=== PATIENT | female | born 1940 | race Caucasian/White ===

== ENCOUNTER → 2021-05-02 | Outpatient (CLI) | payer SELFPAY | END | disposition home or self-care (01) | LOC: LAB SHORT 11:25 | DX: Z11.59 Encounter for screening for other viral diseases (principal) | CPT/HCPCS: 86803 ==

== ENCOUNTER 2023-01-14 11:58 | Observation (INO) | payer MEDICARE ==
[~2023-01-14] VITALS: Ht 172.7 cm; Wt 114.0 kg
[2023-01-14 13:23] LABS: BASOPHILS ABSOLUTE AUTO 0.07 K/mm3 (0.00-0.23); BASOPHILS PERCENT AUTO 1 % (0-2); EOSINOPHILS ABSOLUTE AUTO 0.17 K/mm3 (0.00-0.68); EOSINOPHILS PERCENT AUTO 2 % (0-6); Hematocrit 38.8 % (33.0-51.0); Hemoglobin 12.1 g/dL (11.5-16.0); IMMATURE GRAN ABSOLUTE AUTO 0.06 K/mm3 (0.00-0.10); IMMATURE GRAN PERCENT AUTO 1 % (0-1); LYMPHOCYTES ABSOLUTE AUTO 2.41 K/mm3 (0.84-5.20); LYMPHOCYTES PERCENT AUTO 26 % (21-46); MONOCYTES ABSOLUTE AUTO 0.69 K/mm3 (0.16-1.47); MONOCYTES PERCENT AUTO 8 % (4-13); Mean Corpuscular HGB 28.8 pg (26.0-34.0); Mean Corpuscular HGB Conc 31.2 g/dL (31.5-36.5); Mean Corpuscular Volume 92 fL (80-100); NEUTROPHILS ABSOLUTE AUTO 5.78 K/mm3 (1.96-9.15); NEUTROPHILS PERCENT AUTO 63 % (41-73); Platelet Count 148 K/mm3 (150-400); RDW Coefficient Variation 12.9 % (11.7-14.2); RDW Standard Deviation 43.7 fL (35.1-46.3); White Blood Cell Count 9.18 K/mm3 (4.00-11.30)
[2023-01-14 14:02] LABS: International Normalized Ratio 2.35; Prothrombin Time Results 23.5 Sec (9.7-11.5)
[2023-01-14 14:06] LABS: Albumin, Blood 3.8 g/dL (3.4-5.0); Bilirubin, Total 0.6 mg/dL (0.1-1.0); Bun/Creatinine Ratio 28.1 (12.0-20.0); Calcium, Blood 8.9 mg/dL (8.5-10.1); Creatinine, Blood 1.35 mg/dL (0.40-1.00); Free Thyroxine 1.07 ng/dL (0.70-1.60); Globulin, Blood 3.8 g/dL (2.2-4.0); Potassium, Blood 4.4 mmol/L (3.5-5.5); Thyroid Stimulating Hormone 0.122 uIU/mL (0.360-4.800); Total Protein, Blood 7.6 g/dL (6.4-8.2)
[2023-01-14] MEDS ORDERED: OMEP20ER PO (14:25)
[2023-01-14] MEDS ORDERED: JANTOVEN4 M2 PO (14:25)
[2023-01-14] MEDS ORDERED: LISINOPRIL-HCT1 EACH PO (14:25)
[2023-01-14] MEDS ORDERED: FUROSEMIDE20 MG PO (14:25)
[2023-01-14] MEDS ORDERED: CALCITRIOL0.25 MC4 PO (14:26)
[2023-01-14] MEDS ORDERED: Bisoprolol Fumar5 MG PO (14:26)
[2023-01-14] MEDS ORDERED: METHIMAZOLE5 M1 PO (14:27)
[2023-01-14] MEDS ORDERED: HUMULIN N100 UNIT/3 SC (19:34)
[2023-01-14] MEDS ORDERED: Metronidazole T45 GM TOP (19:35)
[2023-01-14] MEDS ORDERED: Ventolin/Prove6.7 GM INH (19:36)
[2023-01-14] MEDS ORDERED: AMLODIPINE BESY10 MG PO (19:36)
[2023-01-14] MEDS ORDERED: METO100ER PO (19:37)
[2023-01-14] MEDS ORDERED: PRAVASTATIN SOD40 MG PO (19:37)
[2023-01-14] MEDS ORDERED: FLUTICASONE-SAL12 G1 INH (19:38)
[2023-01-14] MEDS ORDERED: MONT10T PO (19:39)
[2023-01-14 19:43] VITALS: BP 209/75
[2023-01-14] MEDS ORDERED: HUMALOG KW100 UNIT/1 SC ×2 (19:48)
[2023-01-14] MEDS ORDERED: WARF2 PO (20:03)
[2023-01-14 20:08] VITALS: BP 198/68
[2023-01-14 23:13] VITALS: BP 169/54
--- NOTE | 2023-01-15 00:15 | NUR ---
1938 TO FLOOR FROM ER, MAKES NEEDS KNOWN, CALL LIGHT WITH IN REACH, NO DISTRESS, CONTINENT, CALL LIGHT WITH IN REACH
[2023-01-15 05:33] LABS: BASOPHILS ABSOLUTE AUTO 0.04 K/mm3 (0.00-0.23); BASOPHILS PERCENT AUTO 1 % (0-2); EOSINOPHILS ABSOLUTE AUTO 0.11 K/mm3 (0.00-0.68); EOSINOPHILS PERCENT AUTO 2 % (0-6); Hematocrit 35.2 % (33.0-51.0); Hemoglobin 11.2 g/dL (11.5-16.0); IMMATURE GRAN ABSOLUTE AUTO 0.03 K/mm3 (0.00-0.10); IMMATURE GRAN PERCENT AUTO 0 % (0-1); LYMPHOCYTES ABSOLUTE AUTO 2.69 K/mm3 (0.84-5.20); LYMPHOCYTES PERCENT AUTO 39 % (21-46); MONOCYTES ABSOLUTE AUTO 0.64 K/mm3 (0.16-1.47); MONOCYTES PERCENT AUTO 9 % (4-13); Mean Corpuscular HGB 28.9 pg (26.0-34.0); Mean Corpuscular HGB Conc 31.8 g/dL (31.5-36.5); Mean Corpuscular Volume 91 fL (80-100); Mean Platelet Volume 12.5 fL (9.1-12.4); NEUTROPHILS ABSOLUTE AUTO 3.33 K/mm3 (1.96-9.15); NEUTROPHILS PERCENT AUTO 49 % (41-73); Platelet Count 125 K/mm3 (150-400); Red Blood Cell Count 3.87 M/mm3 (3.80-5.20); White Blood Cell Count 6.84 K/mm3 (4.00-11.30)
--- NOTE | 2023-01-15 05:34 | NUR ---
NEW ADMIT LAST NIGHT FROM ER, ALERT AND ORIENTED X4, MAKES NEEDS KNOWN, HTN, DM, NO COVERAGE NEEDED FOR PM BS, DENIED NEED FOR PAIN MEDS BUT DID WANT TYLENOL FOR A HEADACHE, STAND BY ASSIST FOR LIGHT HEADEDNESS AND FAINTING. TELE ON, PRN HYDRALAZINE AVAILABLE, PLEASANT TO CARE, WILL RELAY TO AM RN, CALL LIGHT WITH IN REACH
[2023-01-15 05:45] LABS: International Normalized Ratio 2.34; Prothrombin Time Results 23.4 Sec (9.7-11.5)
[2023-01-15 05:55] LABS: Albumin, Blood 3.3 g/dL (3.4-5.0); Albumin/Globulin Ratio 0.9 (0.8-1.8); Bilirubin, Total 0.6 mg/dL (0.1-1.0); Bun/Creatinine Ratio 28.3 (12.0-20.0); Creatinine, Blood 1.2 mg/dL (0.40-1.00); Globulin, Blood 3.5 g/dL (2.2-4.0); Total Protein, Blood 6.8 g/dL (6.4-8.2)
[2023-01-15 05:56] LABS: Calcium, Blood 11.3 mg/dL (8.5-10.1)
[2023-01-15 08:11] VITALS: BP 160/58
--- NOTE | 2023-01-15 13:03 | NUR ---
Upon receiving a referral for spiritual care, I visited the patient, She is sitting up in bed and alert. Her spouse, Stan, is bedside as she explains about her current medical conditions and the complications associated with them. They are both quite pleasant. 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 Stan tells me about his career in [employer] as a warehouse delivery driver to working on high rise buildings. They share about their Scientologist beliefs and their hobbies and how they use their talents to serve and aide the those who are sick and in need. I normalize their experience, reinforce their helpful attiudes and practices and provide theraeutic listening and prayer. They both responded well and showed signs of greater peace. I will continue to remain available to patient and family.
--- NOTE | 2023-01-15 16:01 | NUR ---
PT AWAKE DURING SHIFT REPORT. NO C/O. UP INDEPENDENTLY IN AND TO [facility]. HOSPITALIST'S IN TO SEE PT AND DISCUSS PLAN OF CARE. STARTED BETTA STACEY 2 WKS AGO AND HAVING INCREASED DIZZINESS. PT ALSO REPORTED THYROID ISSUES CAUSING HEART RATE PROBLEMS WELL DIARRHEA; SEEING CORD MAKER, DR SCHMIDT. D/C ORDERS PLACED WITH PT TO HAVE ZIO PATCH PUT ON BEFORE LEAVING. PT TO F/U WITH PCP, DR SCHMIDT, AND CARDIOLOGY PER D/C ORDERS. ZIO PATCH PLACED AND THEN PT ASSISTED OUT TO HUSBANDS CAR VIA W/C, WITH BELONGINGS IN HAND.
== END 2023-01-15 14:51 | disposition home or self-care (01) ==
LOC: ER 11:58 → MEDS 11:59
PROVIDERS: Emergency Medicine; Student in an Organized Health Care Education/Training Program; ADMIT Internal Medicine
DX: R55 Syncope and collapse (principal); T44.7X5A Adverse effect of beta-adrenoreceptor antagonists, initial encounter; I48.91 Unspecified atrial fibrillation; E05.90 Thyrotoxicosis, unspecified without thyrotoxic crisis or storm; I12.9 Hypertensive chronic kidney disease with stage 1 through stage 4 chronic kidney disease, or unspecified chronic kidney disease; E11.22 Type 2 diabetes mellitus with diabetic chronic kidney disease; N18.30 Chronic kidney disease, stage 3 unspecified; J45.909 Unspecified asthma, uncomplicated; I27.20 Pulmonary hypertension, unspecified; K21.9 Gastro-esophageal reflux disease without esophagitis; R60.9 Edema, unspecified; Z88.2 Allergy status to sulfonamides; Z88.0 Allergy status to penicillin; Z79.01 Long term (current) use of anticoagulants; Z79.899 Other long term (current) drug therapy
CPT/HCPCS: 36415; 71046; 80053; 82947; 83880; 84439; 84443; 84481; 84484; 85025; 85610; 85730; 93005; 93010; 93246; 96365; 96366; 99285-25; A9270; G0378; J0612; J1610; J7030

== ENCOUNTER 2023-02-05 15:36 | Emergency (ER) | payer MEDICARE ==
[~2023-02-05] VITALS: Ht 172.7 cm; Wt 109.3 kg
[~2023-02-05 15:36] MED LIST: AMLODIPINE BESY10 MG PO; Bisoprolol Fumar5 MG PO; CALCITRIOL0.25 MC4 PO; FLUTICASONE-SAL12 G1 INH; FUROSEMIDE20 MG PO; HUMALOG KW100 UNIT/1 SC; HUMULIN N100 UNIT/3 SC; JANTOVEN4 M2 PO; LISINOPRIL-HCT1 EACH PO; METHIMAZOLE5 M1 PO; METO100ER PO; MONT10T PO; Metronidazole T45 GM TOP; OMEP20ER PO; PRAVASTATIN SOD40 MG PO; Ventolin/Prove6.7 GM INH; WARF2 PO
[2023-02-05 15:57] VITALS: BP 137/62
[2023-02-05 16:22] LABS: BASOPHILS ABSOLUTE AUTO 0.02 K/mm3 (0.00-0.23); BASOPHILS PERCENT AUTO 0 % (0-2); EOSINOPHILS ABSOLUTE AUTO 0.17 K/mm3 (0.00-0.68); EOSINOPHILS PERCENT AUTO 2 % (0-6); Hematocrit 36.7 % (33.0-51.0); Hemoglobin 11.9 g/dL (11.5-16.0); IMMATURE GRAN ABSOLUTE AUTO 0.02 K/mm3 (0.00-0.10); IMMATURE GRAN PERCENT AUTO 0 % (0-1); LYMPHOCYTES ABSOLUTE AUTO 2.44 K/mm3 (0.84-5.20); LYMPHOCYTES PERCENT AUTO 32 % (21-46); MONOCYTES ABSOLUTE AUTO 0.61 K/mm3 (0.16-1.47); MONOCYTES PERCENT AUTO 8 % (4-13); Mean Corpuscular HGB 29.7 pg (26.0-34.0); Mean Corpuscular HGB Conc 32.4 g/dL (31.5-36.5); Mean Corpuscular Volume 92 fL (80-100); NEUTROPHILS ABSOLUTE AUTO 4.35 K/mm3 (1.96-9.15); NEUTROPHILS PERCENT AUTO 57 % (41-73); Platelet Count 109 K/mm3 (150-400); RDW Coefficient Variation 13.1 % (11.7-14.2); RDW Standard Deviation 43.4 fL (35.1-46.3); Red Blood Cell Count 4.01 M/mm3 (3.80-5.20); White Blood Cell Count 7.61 K/mm3 (4.00-11.30)
[2023-02-05 16:27] LABS: Mean Platelet Volume 13.5 fL (9.1-12.4)
[2023-02-05 16:40] LABS: Albumin, Blood 3.8 g/dL (3.4-5.0); Albumin/Globulin Ratio 1.1 (0.8-1.8); Bilirubin, Total 0.4 mg/dL (0.1-1.0); Bun/Creatinine Ratio 24.1 (12.0-20.0); Calcium, Blood 8.5 mg/dL (8.5-10.1); Creatinine, Blood 1.7 mg/dL (0.40-1.00); Globulin, Blood 3.6 g/dL (2.2-4.0); Potassium, Blood 4.3 mmol/L (3.5-5.5); Total Protein, Blood 7.4 g/dL (6.4-8.2)
== END 2023-02-05 19:08 | disposition left against medical advice (07) ==
LOC: ER 15:36
PROVIDERS: Emergency Medicine
DX: Z53.21 Procedure and treatment not carried out due to patient leaving prior to being seen by health care provider (principal)
CPT/HCPCS: 80053; 84484; 85025; 93005; 93010

== ENCOUNTER 2023-02-06 10:43 | Inpatient (IN) | payer MEDICARE ==
[~2023-02-06] VITALS: Ht 172.7 cm; Wt 114.2 kg
[2023-02-06 11:15] LABS: BASOPHILS ABSOLUTE AUTO 0.04 K/mm3 (0.00-0.23); BASOPHILS PERCENT AUTO 1 % (0-2); EOSINOPHILS ABSOLUTE AUTO 0.22 K/mm3 (0.00-0.68); EOSINOPHILS PERCENT AUTO 3 % (0-6); Hematocrit 37.6 % (33.0-51.0); Hemoglobin 12.1 g/dL (11.5-16.0); IMMATURE GRAN ABSOLUTE AUTO 0.04 K/mm3 (0.00-0.10); IMMATURE GRAN PERCENT AUTO 1 % (0-1); LYMPHOCYTES ABSOLUTE AUTO 2.02 K/mm3 (0.84-5.20); LYMPHOCYTES PERCENT AUTO 25 % (21-46); MONOCYTES ABSOLUTE AUTO 0.56 K/mm3 (0.16-1.47); MONOCYTES PERCENT AUTO 7 % (4-13); Mean Corpuscular HGB 29.2 pg (26.0-34.0); Mean Corpuscular HGB Conc 32.2 g/dL (31.5-36.5); Mean Corpuscular Volume 91 fL (80-100); Mean Platelet Volume 12.6 fL (9.1-12.4); NEUTROPHILS ABSOLUTE AUTO 5.33 K/mm3 (1.96-9.15); NEUTROPHILS PERCENT AUTO 65 % (41-73); Platelet Count 108 K/mm3 (150-400); RDW Coefficient Variation 13.2 % (11.7-14.2); Red Blood Cell Count 4.14 M/mm3 (3.80-5.20); White Blood Cell Count 8.21 K/mm3 (4.00-11.30)
[2023-02-06 11:40] LABS: Albumin, Blood 3.8 g/dL (3.4-5.0); Bilirubin, Total 0.4 mg/dL (0.1-1.0); Bun/Creatinine Ratio 24.7 (12.0-20.0); Calcium, Blood 8.6 mg/dL (8.5-10.1); Creatinine, Blood 1.54 mg/dL (0.40-1.00); Globulin, Blood 3.9 g/dL (2.2-4.0); Total Protein, Blood 7.7 g/dL (6.4-8.2)
[2023-02-06 12:31] LABS: International Normalized Ratio 2.64; Prothrombin Time Results 26.2 Sec (9.7-11.5)
[2023-02-06 15:35] VITALS: BP 86/67
[2023-02-06 16:27] VITALS: BP 115/54
--- NOTE | 2023-02-06 17:39 | NUR ---
Dr Jose at bedside this afternoon, consent signed and in front of chart.
--- NOTE | 2023-02-06 18:14 | NUR ---
Admit note Pt alert, oriented x4; calm and cooperative with care. Pt resting in bed. Up in room with sba. Pt denies pain, chest pain/pressure, sob, nausea, and numb/tingling. Per tele sinus 70's, no pauses noted on tele, bp soft. Spo2 >90% on ra, breathing even and unlabored. Abd soft, nontender, +bt t/o. Other vss. No other acute changes noted. NPO at midnight, plans for pacemaker placement tomorrow.
[2023-02-06 20:01] VITALS: BP 131/50
[2023-02-07] VITALS (7 sets, daily range): BP systolic 102–150; BP diastolic 47–71
[2023-02-07 04:06] LABS: BASOPHILS ABSOLUTE AUTO 0.04 K/mm3 (0.00-0.23); BASOPHILS PERCENT AUTO 1 % (0-2); EOSINOPHILS ABSOLUTE AUTO 0.16 K/mm3 (0.00-0.68); EOSINOPHILS PERCENT AUTO 2 % (0-6); Hematocrit 33.3 % (33.0-51.0); Hemoglobin 10.7 g/dL (11.5-16.0); IMMATURE GRAN ABSOLUTE AUTO 0.03 K/mm3 (0.00-0.10); IMMATURE GRAN PERCENT AUTO 1 % (0-1); LYMPHOCYTES ABSOLUTE AUTO 2.43 K/mm3 (0.84-5.20); LYMPHOCYTES PERCENT AUTO 37 % (21-46); MONOCYTES ABSOLUTE AUTO 0.62 K/mm3 (0.16-1.47); MONOCYTES PERCENT AUTO 9 % (4-13); Mean Corpuscular HGB 29.2 pg (26.0-34.0); Mean Corpuscular HGB Conc 32.1 g/dL (31.5-36.5); Mean Corpuscular Volume 91 fL (80-100); NEUTROPHILS ABSOLUTE AUTO 3.32 K/mm3 (1.96-9.15); NEUTROPHILS PERCENT AUTO 50 % (41-73); Platelet Count 102 K/mm3 (150-400); RDW Coefficient Variation 13.2 % (11.7-14.2); RDW Standard Deviation 43.7 fL (35.1-46.3); Red Blood Cell Count 3.66 M/mm3 (3.80-5.20)
--- NOTE | 2023-02-07 04:17 | NUR ---
SHIFT SUMMARY. PT HAS BEEN DOING WELL THIS SHIFT THUS FAR. NO ACUTE CHANGES. PT AOX4, PLEASANT, COOPERATIVE WITH CARE. HAS BEEN ABLE TO SLEEP THROUGHOUT MOST OF SHIFT THUS FAR. NO PAIN REPORTED THUS FAR. SBA TRANSFER TO BATHROOM DUE TO HX OF SYNCOPE. PT REPORTS WHEN SHE TAKES IT SLOW SHE FEELS STEADY AND COMFORTABLE WITH TRANSFER AND THUS FAR HAS HAD A STRONG AND STEADY GAIT. PT DID NOTE THAT SHE OCCASIONALLY FEELS LIGHTHEADED/DIZZY WHEN SITTING/STANDING UP BUT IT IS MANAGABLE IF SHE TAKES IT SLOW. TELE ON THROUGHOUT SHIFT WITH NO EVENTS THUS FAR. NPO SINCE MIDNIGHT PENDING PACEMAKER PLACEMENT TODAY. VITALS HAVE BEEN STABLE. CONTINUES TO SATURATE WELL ON ROOM AIR. BED IS LOCKED IN LOWEST POSITION. CALL LIGHT LEFT WITHIN REACH. CONTINUING TO MONITOR.
[2023-02-07 04:18] LABS: International Normalized Ratio 2.6; Prothrombin Time Results 25.9 Sec (9.7-11.5)
[2023-02-07 04:26] LABS: Bun/Creatinine Ratio 26.4 (12.0-20.0); Calcium, Blood 8.6 mg/dL (8.5-10.1); Creatinine, Blood 1.29 mg/dL (0.40-1.00)
[2023-02-07 04:32] LABS: Mean Platelet Volume 13.2 fL (9.1-12.4)
--- NOTE | 2023-02-07 07:51 | NUR ---
AM NOTE Pt alert, oriented x4; calm and cooperative with care. Pt resting in bed, repositions ind, sba in room due hx syncopal episode. Pt denies pain, chest pain/pressure, nausea, and numb/tingling. Pt reports sob with exertion, spo2 >90% on ra, breathing even and unlabored at rest, ls clear. Tele sinus, bp stable. Abd soft, nontender, +bt t/o. Trace edema to ble. Pt reports dizziness with intially sitting or standing, encouraged pt to take repositioning slow. Other vss. No other acute changes noted. Will continue to monitor. Pt remains NPO other than meds with a sip of water this am, for pacemaker placement.
[2023-02-07 13:37] LABS: International Normalized Ratio 2.35; Prothrombin Time Results 23.5 Sec (9.7-11.5)
--- NOTE | 2023-02-07 16:18 | NUR ---
SHIFT SUMMARY Pt INR still elevated this afternoon, plans to wait for tomorrow for pacemaker placement. No acute chagnes noted with patient. VSS. Will continue to monitor. Plans for NPO at midnight for pacemaker placement.
--- NOTE | 2023-02-07 19:54 | NUR ---
ASSUMED PT CARE FROM RN ON . A&OX4. HR JUNCTIONAL TACH RHYTHM IN 70'S. DENIES CHEST PAIN/PRESSURE. BP STABLE, SEE PT RECORD. O2 SATS > 90% ON RA. DENIES FEELING SOB. DENIES NAUSEA. PT SITTING UP IN BED WATCHING TV. DENIES FURTHER NEEDS AT THIS TIME. CALL LIGHT IN REACH. BED IN LOW POSITION.
[2023-02-08 00:22] VITALS: BP 133/49
[2023-02-08 03:50] VITALS: BP 141/48
[2023-02-08 07:58] LABS: International Normalized Ratio 1.96; Prothrombin Time Results 19.8 Sec (9.7-11.5)
[2023-02-08 09:05] VITALS: BP 148/57
[2023-02-08 11:31] VITALS: BP 123/71
--- NOTE | 2023-02-08 13:34 | NUR ---
SUMMARY AND DISCHARGE NOTE PT BACK FROM [facility] TO PCU 15 AT APPROX 0900. PER HEART CENTER STAFF UNABLE TO OBTAIN ACCESS TO PLACE PACEMAKER. PT TO FOLLOW UP OUTPATIENT 02/12/23 FOR PACER PLACEMENT. ORIGINALLY HEART CENTER RN WHO BROUGHT PT TO PCU REPORTS STAFF WOULD RETURN TO PLACE ZIO PATCH BACK ON PT, THEN HEART CENTER STAFF REPORTED PT NO LONGER NEEDS TO HAVE ZIO PATCH DUE TO ALREADY HAVING ENOUGH DATA FROM PATCH AND PATCH DUE TO BE REMOVED ON 02/12. PT COMPLETED ZIO PATCH PAPERWORK AND RETURNED ZIO PATCH TO HEART CENTER. PT COOPERATIVE WITH CARE. AOX4 NO ACUTE CHANGES. VSS. DISCHARGE REVIEWED WITH PATIENT AND PIV'S REMOVED. PT DISCHARGED HOME WITH SPOUSE.
== END 2023-02-08 13:34 | disposition home or self-care (01) | DRG 309 ==
LOC: ER 10:43 → PCU 13:51
PROVIDERS: Internal Medicine Cardiovascular Disease; Physician Assistant; ADMIT Internal Medicine
DX: I49.5 Sick sinus syndrome (principal); I87.1 Compression of vein; I48.0 Paroxysmal atrial fibrillation; E05.20 Thyrotoxicosis with toxic multinodular goiter without thyrotoxic crisis or storm; I12.9 Hypertensive chronic kidney disease with stage 1 through stage 4 chronic kidney disease, or unspecified chronic kidney disease; E11.22 Type 2 diabetes mellitus with diabetic chronic kidney disease; N18.30 Chronic kidney disease, stage 3 unspecified; G47.33 Obstructive sleep apnea (adult) (pediatric); J45.909 Unspecified asthma, uncomplicated; J84.10 Pulmonary fibrosis, unspecified; Z53.8 Procedure and treatment not carried out for other reasons; Z79.01 Long term (current) use of anticoagulants; Z79.4 Long term (current) use of insulin; Z79.51 Long term (current) use of inhaled steroids; Z53.21 Procedure and treatment not carried out due to patient leaving prior to being seen by health care provider
CPT/HCPCS: 33208; 36415; 76937; 80048; 80053; 82947; 84443; 84484; 85025; 85610; 93005; 93010; 94640; 94660; 94664; 94760; 94762; 99152; 99153; 99285-25; A9270; J1644; J2250; J3010; J3370; J7030; J7040; Q9967

== ENCOUNTER 2023-02-12 05:44 | Day surgery (SDC) | payer MEDICARE ==
[~2023-02-12] VITALS: Ht 172.7 cm; Wt 114.2 kg
[2023-02-12 07:17] VITALS: BP 170/59
[2023-02-12 07:54] LABS: International Normalized Ratio 1.32; Prothrombin Time Results 13.6 Sec (9.7-11.5)
== END 2023-02-12 23:47 | disposition home or self-care (01) ==
LOC: MHTC 05:44
PROVIDERS: Internal Medicine Cardiovascular Disease
DX: I48.20 Chronic atrial fibrillation, unspecified (principal); R00.1 Bradycardia, unspecified; E03.9 Hypothyroidism, unspecified; E11.22 Type 2 diabetes mellitus with diabetic chronic kidney disease; I12.9 Hypertensive chronic kidney disease with stage 1 through stage 4 chronic kidney disease, or unspecified chronic kidney disease; N18.30 Chronic kidney disease, stage 3 unspecified; J45.909 Unspecified asthma, uncomplicated; G47.33 Obstructive sleep apnea (adult) (pediatric); J84.10 Pulmonary fibrosis, unspecified; I27.20 Pulmonary hypertension, unspecified; K21.9 Gastro-esophageal reflux disease without esophagitis; Z79.01 Long term (current) use of anticoagulants; Z79.899 Other long term (current) drug therapy
CPT/HCPCS: 85610; J1644; J3370; J7030; J7040

== ENCOUNTER 2023-03-12 05:35 | Day surgery (SDC) | payer MEDICARE ==
[2023-03-12] VITALS (9 sets, daily range): BP systolic 114–178; BP diastolic 44–100
[~2023-03-12] VITALS: Ht 172.7 cm; Wt 113.0 kg
[~2023-03-12 05:35] MED LIST changes: +HUMULIN N100 UNIT/5; +PRAV20
--- NOTE | 2023-03-12 09:37 | NUR ---
PT ARRIVED BACK TO RECOVERY ROOM IN RECLINER. LACW PACEMAKER SITE SOFT NON-TENDER WITH NO HEMATOMA, NO BLEEDING WITH INTACT DRESSING AND ICE BAG IN PLACE. PT DENIES CHEST PAIN. CALL LIGNT IN REACH. PT DRINKING WATER. PT'S FAMILY IN ROOM. PT WALKED TO TO VOID.
[2023-03-12] MEDS ORDERED: KEFLEX PO (10:15)
--- NOTE | 2023-03-12 10:24 | NUR ---
PT'S LACW SITE SORE.
--- NOTE | 2023-03-12 11:50 | NUR ---
NO CHANGES TO LACW SITE. DISCHARGE INSTRUCTIONS REVIEWED ALL QUESTIONS ANSWERED.
--- NOTE | 2023-03-12 13:26 | NUR ---
20 G IV DISCONTINUED FROM LEFT AC WITH INTACT CANNULA. LEFT ARM SLING PLACED. PT ESCORTED OUT WITH WHEELCHAIR ESCORT.
== END 2023-03-12 13:30 | disposition home or self-care (01) ==
LOC: MHTC 05:35
DX: I49.5 Sick sinus syndrome (principal); I45.5 Other specified heart block; I48.11 Longstanding persistent atrial fibrillation; I25.10 Atherosclerotic heart disease of native coronary artery without angina pectoris; I10 Essential (primary) hypertension; Z88.2 Allergy status to sulfonamides; Z88.0 Allergy status to penicillin; Z79.899 Other long term (current) drug therapy
CPT/HCPCS: 33208; 71045; 76937; 99152; 99153; A9270; C1769; C1781; C1785; C1894; C1898; J1644; J2250; J3010; J3370; J7030; J7040

== ENCOUNTER 2023-10-18 09:29 | Observation (INO) | payer MEDICARE ==
[~2023-10-18] VITALS: Ht 172.7 cm; Wt 115.9 kg
[~2023-10-18 09:29] MED LIST changes: +KEFLEX PO
[2023-10-18 10:04] LABS: BASOPHILS ABSOLUTE AUTO 0.03 K/mm3 (0.00-0.23); BASOPHILS PERCENT AUTO 0 % (0-2); EOSINOPHILS ABSOLUTE AUTO 0.14 K/mm3 (0.00-0.68); EOSINOPHILS PERCENT AUTO 2 % (0-6); Hematocrit 31.6 % (33.0-51.0); Hemoglobin 10.4 g/dL (11.5-16.0); IMMATURE GRAN ABSOLUTE AUTO 0.05 K/mm3 (0.00-0.10); IMMATURE GRAN PERCENT AUTO 1 % (0-1); LYMPHOCYTES ABSOLUTE AUTO 1.52 K/mm3 (0.84-5.20); LYMPHOCYTES PERCENT AUTO 18 % (21-46); MONOCYTES ABSOLUTE AUTO 0.75 K/mm3 (0.16-1.47); MONOCYTES PERCENT AUTO 9 % (4-13); Mean Corpuscular HGB 29.5 pg (26.0-34.0); Mean Corpuscular HGB Conc 32.9 g/dL (31.5-36.5); Mean Corpuscular Volume 90 fL (80-100); Mean Platelet Volume 12.4 fL (9.1-12.4); NEUTROPHILS ABSOLUTE AUTO 5.92 K/mm3 (1.96-9.15); NEUTROPHILS PERCENT AUTO 70 % (41-73); Platelet Count 129 K/mm3 (150-400); RDW Coefficient Variation 13.4 % (11.7-14.2); RDW Standard Deviation 43.7 fL (35.1-46.3); Red Blood Cell Count 3.52 M/mm3 (3.80-5.20); White Blood Cell Count 8.41 K/mm3 (4.00-11.30)
[2023-10-18 10:16] LABS: D-Dimer, Quantitative 0.55 mg/L FEU (0.00-0.52); International Normalized Ratio 3.9; Prothrombin Time Results 37.7 Sec (9.7-11.5)
[2023-10-18 10:24] LABS: Magnesium, Blood 1.7 mg/dL (1.6-2.4)
[2023-10-18 10:28] LABS: Calcium, Blood 8.9 mg/dL (8.5-10.1); Creatinine, Blood 1.22 mg/dL (0.40-1.00); Potassium, Blood 3.4 mmol/L (3.5-5.5); Thyroid Stimulating Hormone 0.01 uIU/mL (0.360-4.800)
[2023-10-18] MEDS ORDERED: Furosemide 10 MG/ML 4ML Vial IV ONE ×2 (11:20→22:20)
[2023-10-18 12:44] LABS: Source, Urine Clean Catch
[2023-10-18 12:46] LABS: Appearance, Urine Clear (Clear); Bilirubin, Urine Neg (Neg); Blood, Urine Neg (Neg); Glucose Qualitative, Urine Neg (Neg); Ketones, Urine Neg (Neg); Leukocyte Esterase, Urine Neg (Neg); Nitrite, Urine Neg (Neg); Protein, Urine Neg (Neg); Specific Gravity, Urine 1.005 (1.003-1.022); Urobilinogen, Urine NORM (Normal); pH, Urine 6.5 (5.0-8.0)
[2023-10-18 12:48] LABS: Color, Urine Pale Yellow (P-Yellow)
[2023-10-18] MEDS ORDERED: Acetaminophen 325 MG TABLET PO PRN (13:55)
[2023-10-18 16:54] VITALS: BP 153/62
[2023-10-18] MEDS ORDERED: CALC.25 PO (16:58)
[2023-10-18] MEDS ORDERED: Bisoprolol Fumar5 MG PO (17:02)
[2023-10-18] MEDS ORDERED: METHIMAZOLE5 M1 PO (17:03)
[2023-10-18] MEDS ORDERED: NS 1,000 ML IV SCH (17:40)
[2023-10-18] MEDS ORDERED: Calcitriol 0.25 MCG Cap PO SCH (17:45)
[2023-10-18] MEDS ORDERED: Albuterol HFA200 ACT/6.7 GM INH INH PRN (17:55)
[2023-10-18] MEDS ORDERED: Mometasone/Formoterol MDI 200/5 mcg 13 GM INH SCH (17:55)
[2023-10-18] MEDS ORDERED: Misc. Topical TOP PRN (18:00)
--- NOTE | 2023-10-18 18:02 | NUR ---
arrival note/shift summary patient arrived at pcu at 1647 and transfered to pcu bed with a standby assist. patient walked into bathroom and voided with minimal assistance and no dizziness lighthead of syncopal episode. vital signs stable. tele paced sinus rhythm, when not being paced afib 60-70s. patient is alert and oriented x4. neuro is intact. patient is able to make needs known and uses call light appropriately. denies pain, chest pain/pressure or shortness of breath. patient has brusing on left upper back, left arm and right lower back. right lower back has a softball hematoma. pictures in chart. see admit shift assessment for further detials. med rec is complete. patient ate a heart healthy diet for dinner and tolerated well. at this time no diarrhea episodes. plan of care is up to date at this time.
[2023-10-18 20:55] VITALS: BP 142/74
[2023-10-18] MEDS ORDERED: Metoprolol Succinate 50 MG TABCR PO SCH (21:00)
[2023-10-18] MEDS ORDERED: Insulin Human Lispro 100 Units/ML 3ML Syringe SC SCH (21:00)
[2023-10-18] MEDS ORDERED: Pravastatin Sodium 20 MG Tab PO SCH (21:00)
[2023-10-18] MEDS ORDERED: Potassium Chloride 10 Meq Tablet SA PO ONE (22:15)
[2023-10-18] MEDS ORDERED: Furosemide 20 MG Tab PO ONE (22:15)
[2023-10-19 00:17] VITALS: BP 157/54
[2023-10-19 04:23] VITALS: BP 146/54
[2023-10-19 04:36] LABS: Hemoglobin 9.3 g/dL (11.5-16.0); Mean Corpuscular HGB 29.4 pg (26.0-34.0); Mean Corpuscular HGB Conc 33.2 g/dL (31.5-36.5); Mean Corpuscular Volume 89 fL (80-100); Platelet Count 111 K/mm3 (150-400); RDW Coefficient Variation 13.3 % (11.7-14.2); RDW Standard Deviation 43.4 fL (35.1-46.3); Red Blood Cell Count 3.16 M/mm3 (3.80-5.20); White Blood Cell Count 6.95 K/mm3 (4.00-11.30)
--- NOTE | 2023-10-19 04:41 | NUR ---
SHIFT SUMMARY ASSUMED CARE OF PT AT 1900. PT IS A/OX4. HEART SOUNDS REGULAR. LUNG SOUNDS HAVE CRACKLES AT THE BASES. PT WORE CPAP WHILE SLEEPING. PT C/O SOB WITH ACTIVITY. PT STATES SHE DIDNT GET HOME LASIX AND HER LEGS MORE SWOLLEN THAN USUAL. HOSPITALIST NOTIFIED AND ORDERED ONE TIME OF LASIX AND POTASSIUM DUE TO LOW LEVELS. PT WAS A 1P SBA TO BATHROOM FOR CORD ASSIST. PT DID NOT SLEEP WELL.
[2023-10-19 04:51] LABS: International Normalized Ratio 3.82
[2023-10-19 05:22] LABS: Albumin, Blood 3.3 g/dL (3.4-5.0); Albumin/Globulin Ratio 1.1 (0.8-1.8); Bilirubin, Total 0.8 mg/dL (0.1-1.0); Bun/Creatinine Ratio 28.2 (12.0-20.0); Calcium, Blood 9.1 mg/dL (8.5-10.1); Creatinine, Blood 1.1 mg/dL (0.40-1.00); Globulin, Blood 3.1 g/dL (2.2-4.0); Potassium, Blood 3.4 mmol/L (3.5-5.5); Total Protein, Blood 6.4 g/dL (6.4-8.2)
[2023-10-19] MEDS ORDERED: Potassium Chloride 20 MEQ TabCR PO ONE (08:15)
--- NOTE | 2023-10-19 08:34 | NUR ---
am note this rn assumed care at 0700. vital signs stable. orthostatic vitals done per orders. tele paced/afib 60-70s. spo2 >90% on room air. patient is alert and oriented x4. neuro is intact. 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 patient denies chest pain/pressure, pain or shortness of breath. patient is independent in adls and calls due to history of syncopal episodes. see shift assessment for further detials. awaiting echo to do done today.
[2023-10-19] MEDS ORDERED: methIMAzole 5 MG TABLET PO SCH (09:00)
[2023-10-19] MEDS ORDERED: Montelukast Sodium 10 MG Tab PO SCH (09:00)
--- NOTE | 2023-10-19 09:09 | NUR ---
update md ellis in to see the patient and discussed plan of care. plan to possibly discharge today pending how morning goes.
[2023-10-19 11:53] VITALS: BP 128/49
--- NOTE | 2023-10-19 14:51 | NUR ---
discharge this rn went over discharge education, follow up appointments and medication changes. patient verbalized understanding. patient left with all belongings and in no distress.
[2023-10-19] MEDS ORDERED: Omeprazole 20 MG CapCR PO SCH (16:30)
[2023-10-22] MEDS ORDERED: METHI10 PO (15:16)
[2023-10-22] MEDS ORDERED: FAMO20 PO (15:17)
[2023-10-22] MEDS ORDERED: FLUT1DIS2 INH (15:17)
[2023-10-22] MEDS ORDERED: NORT25 PO (15:18)
[2023-10-22] MEDS ORDERED: ALBU2.5V5 (15:18)
[2023-10-22] MEDS ORDERED: BENZ100A PO (15:19)
[2023-10-22] MEDS ORDERED: Voltaren100 GM TOP (15:20)
[2023-10-22] MEDS ORDERED: METR59TL (15:20)
[2023-10-22] MEDS ORDERED: FERRO-TIME325 MG PO (15:21)
== END 2023-10-19 14:50 | disposition home or self-care (01) ==
LOC: ER 09:29 → PCU 09:30
PROVIDERS: Emergency Medicine; ADMIT Internal Medicine
DX: N17.9 Acute kidney failure, unspecified (principal); E87.1 Hypo-osmolality and hyponatremia; E87.6 Hypokalemia; R19.7 Diarrhea, unspecified; I12.9 Hypertensive chronic kidney disease with stage 1 through stage 4 chronic kidney disease, or unspecified chronic kidney disease; E11.22 Type 2 diabetes mellitus with diabetic chronic kidney disease; N18.30 Chronic kidney disease, stage 3 unspecified; I49.5 Sick sinus syndrome; E05.90 Thyrotoxicosis, unspecified without thyrotoxic crisis or storm; I48.0 Paroxysmal atrial fibrillation; I25.10 Atherosclerotic heart disease of native coronary artery without angina pectoris; J44.9 Chronic obstructive pulmonary disease, unspecified; E78.5 Hyperlipidemia, unspecified; E20.9 Hypoparathyroidism, unspecified; G47.33 Obstructive sleep apnea (adult) (pediatric); Z91.81 History of falling; Z95.0 Presence of cardiac pacemaker; Z88.2 Allergy status to sulfonamides; Z88.0 Allergy status to penicillin; Z79.01 Long term (current) use of anticoagulants; Z79.4 Long term (current) use of insulin; Z79.899 Other long term (current) drug therapy
CPT/HCPCS: 36415; 70450; 71045; 80048; 80053; 81003; 82947; 83735; 83880; 84443; 84484; 85025; 85027; 85379; 85610; 85730; 93005; 93010; 93306; 94640; 94660; 94664; 94762; 96374; 96376; 99285-25; A9270; G0378; J1940; J7030